=== PATIENT | male | born 1965 | race Caucasian/White ===

== ENCOUNTER → 2018-06-20 | Outpatient (CLI) | payer OTHER ==
--- NOTE | 2018-06-20 10:42 | MR ---
EXAMINATION TYPE: MR lumbar spine wo con DATE OF EXAM: 06/20/2018 COMPARISON: CT 02/10/2010 HISTORY: Low back pain TECHNIQUE: Multiplanar, multisequence images of the lumbar spine were acquired. L1-L2: Normal disc appearance without desiccation. No herniation, protrusion or disc bulging. No ca nal stenosis is present. Foramina are patent bilaterally. L2-L3: No significant central stenosis or evident disc herniation. No foraminal encroachment. There i s loss of disc height signal. L3-L4: Normal disc appearance without desiccation. No herniation, protrusion or disc bulging. No ca nal stenosis is present. Foramina are patent bilaterally. L4-L5: Facet arthropathy changes present with hypertrophy of ligamentum flavum causing some posterior lateral mass effect on the thecal sac. No significant central stenosis. No foraminal encroachment. M inimal posterior broad-based disc bulge causes slight anterior mass effect on the thecal sac. L5-S1: Facet arthropathy changes present. No sizable disc herniation. No central canal stenosis or de finite foraminal encroachment. Lumbar segments are intact. No paraspinal masses are identified. Conus medullaris has a normal appe arance. There is loss of disc height and signal greatest at L2-3, there is endplate discogenic marrow signal change, endplate Schmorl's node formation. IMPRESSION: Mild degenerative disc disease. Facet arthropathy.
== END | disposition home or self-care (01) ==
LOC: RADMRIMAIN 07:56
PROVIDERS: ATTEND Psychiatry & Neurology Pain Medicine
DX: M51.36 Other intervertebral disc degeneration, lumbar region (principal); M46.97 Unspecified inflammatory spondylopathy, lumbosacral region
CPT/HCPCS: 72148

== ENCOUNTER → 2018-07-17 | Outpatient (CLI) | payer OTHER ==
--- NOTE | 2018-07-17 09:20 | MR ---
EXAMINATION TYPE: MR knee RT wo/w con DATE OF EXAM: 07/17/2018 COMPARISON: NONE HISTORY: Pain in Right Knee per order. Intervening pain and swelling for 2 years per patient. TECHNIQUE: Multiplanar, multisequence images of the knee is performed without and with IV contrast. Patient inje cted with 9.5 cc of gadolinium best for the study. FINDINGS: MEDIAL MENISCUS: Anterior and posterior horns are intact without tear. LATERAL MENISCUS: Anterior horn is intact without tear. Triangular and irregular increased signal pos terior horn of medial meniscus appears to extend to inferior articular surface. CRUCIATE LIGAMENTS: The anterior and posterior cruciate ligaments are intact and unremarkable. COLLATERAL LIGAMENTS: The medial collateral ligament and lateral collateral ligament complex are inta ct and unremarkable. EXTENSOR MECHANISM: Visualized quadriceps and patellar tendons are intact. EFFUSION: No significant suprapatellar joint effusion. POPLITEAL CYST: No popliteal/bundy cyst. TRICOMPARTMENT SPACES: There is mild to moderate tricompartment joint space loss with mild to moderat e tricompartment spurring. . CARTILAGE: Tricompartment articular cartilage is fairly well-maintained. No significant chondromalaci a patella. BONE MARROW SIGNAL: Focus subcentimeter heterogeneous low T1 and increased T2 signal favoring subchon dral cystic anterior central distal femur sagittal image 13, favoring osteochondral lesion or focal b one marrow edema. OTHER: No suspicious enhancement is seen. IMPRESSION: 1. Full-thickness tear posterior horn of medial meniscus. 2. Mild to moderate tricompartment degenerative changes with small osseous lesion or focal edema ante rior central distal femur just below patellofemoral joint space.
--- NOTE | 2018-07-17 09:23 | MR ---
EXAMINATION TYPE: MR knee LT wo/w con DATE OF EXAM: 07/17/2018 COMPARISON: NONE HISTORY: Pain in unspecified left knee. Inner knee pain and swelling for 2 years per patient. TECHNIQUE: Multiplanar, multisequence images of the knee is performed without and with IV contrast. Patient inje cted with 9.5 cc of gadolinium this for study. FINDINGS: MEDIAL MENISCUS: Anterior horn is intact without tear. There is irregular increased signal posterior horn of medial meniscus extends to inferior articular surface sagittal image 23. LATERAL MENISCUS: Anterior and posterior horns are intact without tear. CRUCIATE LIGAMENTS: The anterior and posterior cruciate ligaments are intact and unremarkable. COLLATERAL LIGAMENTS: The medial collateral ligament and lateral collateral ligament complex are inta ct and unremarkable. EXTENSOR MECHANISM: Visualized quadriceps and patellar tendons are intact. EFFUSION: No significant suprapatellar joint effusion. POPLITEAL CYST: No popliteal/bundy cyst. TRICOMPARTMENT SPACES: Mild tricompartment joint space loss is present. Mild spurring is seen. CARTILAGE: Tricompartment articular cartilage is preserved. There is no significant chondromalacia pa tella. BONE MARROW SIGNAL: No focal abnormal marrow signal is appreciated. OTHER: No suspicious enhancement is noted. IMPRESSION: 1. Full-thickness tear posterior horn of medial meniscus. 2. Mild tricompartment degenerative changes left knee less prominent than opposite right knee.
== END ==
LOC: RADMRIMAIN 06:40
PROVIDERS: ATTEND Physician Assistant
DX: S83.241A Other tear of medial meniscus, current injury, right knee, initial encounter (principal); S83.242A Other tear of medial meniscus, current injury, left knee, initial encounter; M17.0 Bilateral primary osteoarthritis of knee
CPT/HCPCS: 73723 ×2; A9585

== ENCOUNTER → 2021-02-27 | Outpatient (CLI) | payer OTHER ==
--- NOTE | 2021-02-27 09:48 | MR ---
EXAMINATION TYPE: MR shoulder LT wo con DATE OF EXAM: 02/27/2021 COMPARISON: None HISTORY: Bursitis of left shoulder, pain TECHNIQUE: Multiplanar, multisequence imaging of the left shoulder is performed without contrast. FINDINGS: There is diffuse thickening and increased signal in the distal 2 cm of the supraspinatus te ndon compatible severe tendinopathy. At the insertion there is findings of a partial through thicknes s tear involving a 3 mm segment of the anterior fibers. Subscapularis tendon intact. Mild thickening of the distal 1 cm of the infraspinatus tendon compatibl e with mild tendinosis. No definite through thickness tear or retraction. No sizable joint effusion. Glenohumeral ligaments intact. Bony labrum grossly intact but not arthrogr am technique. No marrow edema or contusion. Mild hypertrophic change of the AC joint with a downward sloping acromion likely resulting in degree of impingement. Bicipital tendon well situated in the bicipital groove. Increased signal within the intracapsular por tion of the biceps tendon suggests tendinosis. Split tear not excluded. IMPRESSION: 1. Diffuse thickening and increased signal throughout the distal 2 cm of the supraspinatus tendon com patible severe arthropathy. Partial tear involving the anterior fibers and undersurface of the distal supraspinatus tendon without retraction. 2. Infraspinatus mild tendinosis with no evidence of tear. 3. Hypertrophic change of the AC joint with downward sloping acromion compatible with impingement. 4. Bicipital tendinosis at the level of the rotator interval.
== END | disposition home or self-care (01) ==
LOC: RADMRIMAIN 06:06
PROVIDERS: ATTEND Family Medicine
DX: M75.52 Bursitis of left shoulder (principal)

== ENCOUNTER 2022-01-21 07:54 | Day surgery (SDC) | payer OTHER ==
[2022-01-20 08:19] VITALS: BMI 30.1
[2022-01-21] MEDS ORDERED: DEXAMETHASONE SOD PHOSPHATE 4 MG/ML 1 ML VIAL IV ONE (08:32)
[2022-01-21] MEDS ORDERED: HYDROmorphone 0.5 MG/0.5 ML SYRINGE IVP PRN (08:32)
[2022-01-21] MEDS ORDERED: ONDANSETRON 4 MG/2 ML VIAL IVP ONE (08:32)
[2022-01-21] MEDS ORDERED: LACTATED RINGERS 1,000 ML IV SCH (08:32)
[2022-01-21 08:38] VITALS: TEMP 96.9
[2022-01-21] MEDS ORDERED: LIDOCAINE 1% (10MG/ML) FOR IV START SQ ONE (08:45)
[2022-01-21] MEDS ORDERED: LIDOCAINE 2% INJ 20 MG/ML (2 ML VIAL) ONE (09:10)
[2022-01-21] MEDS ORDERED: PROPOFOL 10 MG/ML 20 ML VIAL IV ONE (09:10)
--- NOTE | 2022-01-21 09:13 | P.GSHP ---
History of Present Illness H&P Date: 01/21/22 Chief Complaint: Constipation This is a 56-year-old male second with constipation. Patient presents today for colonoscopy Past Medical History Past Medical History: No Reported History Additional Past Medical History / Comment(s): HX CONSTIPATION. HAS BEEN HAVING BOUTS OF VERTIGO FOR PAST 2 WEEK History of Any Multi-Drug Resistant Organisms: None Reported Past Surgical History: Hernia Repair, Orthopedic Surgery Additional Past Surgical History / Comment(s): right shoulder surgery X2. LT SHOULDER X1. LT KNEE SX Past Anesthesia/Blood Transfusion Reactions: Previous Problems w/ Anesthesia Additional Past Anesthesia/Blood Transfusion Reaction / Comment(s): SLOW TO COME OUT OF ANESTHESIA Smoking Status: Never smoker - Past Family History Mother Family Medical History: No Reported History Medications and Allergies Home Medications Medication Instructions Recorded Confirmed Type No Known Home Medications 01/20/22 01/21/22 History Allergies Allergy/AdvReac Type Severity Reaction Status Date / Time No Known Allergies Allergy Verified 01/21/22 08:33 Surgical - Exam Vital Signs Temp Pulse Resp BP Pulse Ox 96.9 F L 67 16 115/67 99 01/21/22 08:37 01/21/22 08:37 01/21/22 08:37 01/21/22 08:37 01/21/22 08:37 - General well developed, well nourished, no distress - Eyes PERRL - ENT normal pinna - Neck no masses - Respiratory normal expansion - Cardiovascular Rhythm: regular - Abdomen Abdomen: soft, non tender Assessment and Plan Assessment: History does wish. We'll perform colonoscopy.
--- NOTE | 2022-01-21 09:27 | P.OP ---
Date of Procedure: 01/21/22 Preoperative Diagnosis: Constipation Postoperative Diagnosis: Mild diverticulosis Procedure(s) Performed: Colonoscopy Anesthesia: MAC Surgeon: Clayton Mesa Pathology: none sent Condition: stable Disposition: PACU Description of Procedure: The patient's placed on the endoscopy table in the lateral position. He received IV sedation. Digital rectal exam was performed. There was some minimal external hemorrhoids. The possible colonoscope was then placed patient anus passed throughout the entire colon. The ileocecal valve incised. The cecum, ascending and transverse colon appeared normal. In the descending; was mild diverticular changes. The scope was then brought back into the rectum. And this appeared normal. The scope was withdrawn for patient.
[2022-01-21 09:53] VITALS: BP 106/63; PULSE 55; RESP 20
== END 2022-01-21 10:00 | disposition home or self-care (01) ==
LOC: ORWHC2ENDO 07:54
PROVIDERS: ATTEND Surgery
DX: K57.90 Diverticulosis of intestine, part unspecified, without perforation or abscess without bleeding (principal)
CPT/HCPCS: 45378; J2704; J2001

== ENCOUNTER → 2023-02-10 | Outpatient (CLI) | payer OTHER | END | disposition home or self-care (01) | LOC: LABPAT 15:23 | PROVIDERS: ATTEND Orthopaedic Surgery | DX: Z01.812 Encounter for preprocedural laboratory examination (principal); Z22.322 Carrier or suspected carrier of Methicillin resistant Staphylococcus aureus; M16.12 Unilateral primary osteoarthritis, left hip | CPT/HCPCS: 87070 ==

== ENCOUNTER 2023-02-21 05:37 | Day surgery (SDC) | payer OTHER ==
--- NOTE | 2023-02-20 18:32 | HP ---
HISTORY AND PHYSICAL DATE OF SURGERY: 02/21/2023. HISTORY OF PRESENT ILLNESS: Kelvin Wilkerson is a 57-year-old gentleman seen with progressive left hip pain. We discussed options for treatment. He elected to proceed with direct anterior left total hip arthroplasty. Consent was obtained. Clearance was provided through the [facility]. PAST MEDICAL HISTORY: Noncontributory. PAST SURGICAL HISTORY: Knee arthroscopy, shoulder arthroscopy. DAILY MEDICATIONS: Ibuprofen. ALLERGIES: None. SOCIAL HISTORY: Denies tobacco use. PHYSICAL EVALUATION OF LEFT HIP: He has limited range of motion with severe pain, diffuse tenderness about the hip girdle. Positive hip impingement sign. Straight-leg raise negative. Distal neurovascular exam is intact. RADIOGRAPHS: Radiographs of the left hip revealed severe osteoarthritic changes. IMPRESSION: Left hip osteoarthritis. PLAN: Direct anterior left total hip arthroplasty. MMODL / IJN: [id number] /
[~2023-02-21 05:37] MED LIST: ACETAMINOPHEN TAB 500 MG TAB PO PRN; MELOXICAM 7.5 MG TAB PO PRN; TRANEXAMIC 1,000 MG/100ML-NACL 1,000 MG in SALINE 1 100ML.BAG IVPB PRN
[2023-02-21] MEDS ORDERED: LACTATED RINGERS 1,000 ML IV SCH (05:56)
[2023-02-21] MEDS ORDERED: ONDANSETRON 4 MG/2 ML VIAL IVP ONE (05:56)
[2023-02-21] MEDS ORDERED: SCOPOLAMINE 1 MG/72 HR PATCH TRANSDERM ONE (05:56)
[2023-02-21] MEDS ORDERED: DEXAMETHASONE SOD PHOSPHATE 4 MG/ML 1 ML VIAL IV ONE (05:56)
[2023-02-21] MEDS ORDERED: MIDAZOLAM 2 MG/2 ML VIAL IV PRN (05:56)
[2023-02-21] MEDS ORDERED: MIDAZOLAM 2 MG/2 ML VIAL IV ONE (06:55)
[2023-02-21] MEDS ORDERED: fentaNYL (PF) 50 MCG/1 ML VIAL IV ONE (06:55)
--- NOTE | 2023-02-21 07:19 | P.ANPRN ---
Procedure Note - Anesthesia - Nerve Block Performed Left Wade Single Time Out Performed: Yes ([id number]) Date of Procedure: 02/21/23 Procedure Start Time: 06:56 Procedure Stop Time: 07:00 Location of Patient: PreOp Indication: Acute Post-Operative Pain, Requested by Surgeon Specifically requested for management of pain by DrAden: Cristhian Garg Sedation Type: Sedate with meaningful contact maintained Preparation: Sterile Prep Position: Supine Catheter: None Needle Types: Pajunk Needle Gauge: 21 Ultrasound used to visualize needle placement: Yes Ultrasound used to observe medication spread: Yes Injectate: 0.5% Ropivacaine (see comment for volume) (30cc) Blood Aspirated: No Pain Paresthesia on Injection Noted: No Resistance on Injection: Normal Image Stored and Saved: Yes Events: Uneventful and Well Tolerated
[2023-02-21] MEDS ORDERED: ROCURONIUM 10 MG/ML (5 ML VIAL) IV ONE (07:25)
[2023-02-21] MEDS ORDERED: PROPOFOL 10 MG/ML 20 ML VIAL IV ONE (07:25)
[2023-02-21] MEDS ORDERED: SUCCINYLCHOLINE CHLORIDE 200 MG/10 ML VIAL IV ONE (07:25)
[2023-02-21] MEDS ORDERED: NEOSTIGMINE 1 MG/ML 10 ML VIAL ONE (07:25)
[2023-02-21] MEDS ORDERED: LIDOCAINE 2% INJ 20 MG/ML (2 ML VIAL) ONE (07:25)
[2023-02-21] MEDS ORDERED: ROPIVACAINE 5 MG/ML 30 ML VIAL ONE (07:25)
[2023-02-21] MEDS ORDERED: GLYCOPYRROLATE 0.2 MG/ML 2 ML VIAL ONE (07:25)
[2023-02-21] MEDS ORDERED: fentaNYL (PF) 50 MCG/ML 2 ML AMP ONE (07:25)
[2023-02-21] MEDS ORDERED: LACTATED RINGERS 1,000 ML IV ONE ×3 (09:28→09:43)
[2023-02-21] MEDS ORDERED: HYDROcodone/APAP 5-325MG 1 EACH TAB PO PRN (09:28)
[2023-02-21] MEDS ORDERED: HYDROcodone/APAP 7.5-325MG 1 EACH TAB PO PRN (09:28)
[2023-02-21] MEDS ORDERED: ONDANSETRON 4 MG/2 ML VIAL IVP PRN (09:28)
[2023-02-21] MEDS ORDERED: HYDROmorphone 0.5 MG/0.5 ML SYRINGE IVP PRN ×2 (09:28)
[2023-02-21] MEDS ORDERED: NALOXONE 0.4 MG/ML 1 ML VIAL IV PRN (09:28)
[2023-02-21] MEDS ORDERED: HYDROmorphone 1 MG/ML 1 ML SYRINGE IVP PRN (09:28)
--- NOTE | 2023-02-21 09:28 | P.OP ---
Date of Procedure: 02/21/23 Preoperative Diagnosis: Left hip osteoarthritis Postoperative Diagnosis: Left hip osteoarthritis Procedure(s) Performed: Direct anterior left total hip arthroplasty Implants: 1. Depuy corail 135 size 11 press-fit femoral stem 2. Depuy pinnacle 58 mm press-fit acetabular shell 3. Depuy pinnacle neutral polyethylene acetabular liner 36 mm ID 58 mm OD 4. Biolox delta ceramic femoral head +1.5 36 mm Anesthesia: GETA, regional (Erector spinae block) Surgeon: Cristhian Garg Instrument Designer #1: Rivas Jaime Estimated Blood Loss (ml): 55 Pathology: none sent Condition: stable Disposition: PACU Indications for Procedure: 57-year-old patient seen with symptomatic left hip osteoarthritis. After treatment options were discussed, he elected to proceed with direct anterior left total hip arthroplasty. Operative Findings: See description of procedure Description of Procedure: The patient was taken to the operative suite. Patient underwent a general anesthetic by the department of anesthesia. Patient was then transferred to the [place] table. Patient was given preoperative IV antibiotics and TXA. Both lower extremities were placed in standard leg spars. The hip was then prepped and draped in the normal sterile orthopedic fashion. A standard anterior incision was made beginning 3 cm lateral and 1 cm distal to the ASIS extending 10 cm. Dissection was then carried down through the subcutaneous soft tissues down to the fascia overlying the tensor fascia doug. An incision was now made through the fascia. Careful dissection was taken down exposing the tensor fascia doug muscle. A Cobra retractor was now placed along the medial femoral neck and a second one along the lateral femoral neck. The venous circumflex vessels were now identified, cauterized and clipped. We identified the anterior hip capsule. An incision was made through the hip capsule along the lateral border. I performed a partial anterior capsulectomy. Retractors were now placed around the femoral neck itself. A femoral neck cut was now made with a sagittal saw. It was completed with an osteotome at the lateral neck area. The femoral head was now removed without difficulty. The extremity was now rotated to 60 of external rotation. It was locked in position. Residual labrum was now debrided out. Serial reaming was performed of the acetabulum while Davis Jaime PA assist ed holding an anterior retractor for exposure. Once we reached the appropriate size and a trial was position and fit nicely. The appropriate size was now chosen opened and made available. It was introduced into the acetabulum without difficulty. The C-arm/fluoroscopy was now brought into the operative field. We made sure we had a true AP pelvic view. We now under direct C-arm/fluoroscopy introduced into the acetabular component with appropriate version and inclination. I held the cup in appropriate position well Davis CHOU used a mallet to seat the acetabular component. I noted the component now to be well seated and stable. Acetabular cup introduce her was removed. The C-arm was pulled back. An appropriate liner was introduced and clicked into position. It was felt to be stable. At this point retractors were removed. The extremity was now placed into 140 external rotation with no traction. The leg was now dropped to the ground and adducted. Appropriate retractors were now positioned along the proximal femur. We also placed our femoral look into position. Additional capsular releasing was performed to gain access to the proximal femur. We now used a box osteotome. A canal finder was now utilized. Serial broaching was now performed with the assistance of Davis CHOU tapping the broaches down with a mallet while held the broach in appropriate rotation and position. This was done until we reached the appropriate size with good overall rotational stability. Appropriate calcar planing was performed. A trial head/neck was placed into position. The hip was now reduced. The C- arm/fluoroscopy was brought back into the operative field. I obtained an AP pelvis which demonstrated adequate leg length alignment. The trial components appeared adequately sized and positioned. The C-arm/fluoroscopy was pulled back. Retractors were repositioned and the hip was dislocated. The leg was again taken down to the ground and adducted. Appropriate retractors were repositioned as well as the femoral hook. All trial components were removed. The femoral implant was opened along with the femoral head. The femoral implant was introduced on the appropriate handle into our pre-broached area. I held the component position well Davis CHOU used a mallet to seat the femoral component. The femoral component was now noted to be well seated and stable.. The femoral head was introduced with good positioning and fixation noted. Retractors were now removed. The hip was now reduced. There appeared be good positioning of the hip confirmed on intraoperative fluoroscopy. Spot films were obtained to document this. A second gram of TXA was given. Bipolar cautery had been utilized intermittently through the procedure for hemostasis. The wound was irrigated copiously with pulse lavage mechanical irrigation. The fascia was repaired with Vicryl suture. The subcutaneous soft tissues were repaired in layers with Vicryl suture. The skin was approximated with pernio/Dermabond. Sterile dressings were applied. Patient was then awakened, transferred to a bed and taken to recovery in stable condition. Davis CHOU assisted with the complex procedure.
--- NOTE | 2023-02-21 09:31 | XR ---
Intraoperative/procedural fluoroscopic services were provided for a left hip total arthroplasty. Tota l fluoroscopy time is 25.6 seconds with a total of 2 submitted images to PACS. Total DAP 1.7578 Gycm2 . Please see the operative note for further details.
[2023-02-21 10:06] VITALS: TEMP 97.3
[2023-02-21] MEDS: HYDROmorphone 0.5 MG/0.5 ML SYRINGE IVP PRN ×3 (10:07→10:31)
[2023-02-21 14:40] VITALS: PULSE 82
[2023-02-21 15:35] VITALS: BP 107/65; RESP 16
[2023-02-21] MEDS ORDERED: TAMSULOSIN 0.4 MG CAP.ER.24H PO ONE (16:41)
== END 2023-02-21 16:54 | disposition home health service (06) ==
LOC: OR 05:37
PROVIDERS: ATTEND Orthopaedic Surgery
DX: M16.12 Unilateral primary osteoarthritis, left hip (principal); G89.18 Other acute postprocedural pain; E78.5 Hyperlipidemia, unspecified; Z79.1 Long term (current) use of non-steroidal anti-inflammatories (NSAID); Z79.899 Other long term (current) drug therapy
CPT/HCPCS: 27130; 97530; 97161; 64447; 86900; 86901; 86850; 73501; C1776; J2250; J0330; J1100; J2710; J0690; J2405; J3010 ×2; J2795; J2704; J1170; J2001